=== PATIENT | female | born 1960 | race Caucasian/White ===

== ENCOUNTER 2021-03-28 14:43 | Outpatient (CLI) | payer BC | END 2021-03-28 14:44 | disposition home or self-care (01) | LOC: BICRAD 14:43 | PROVIDERS: ATTEND Internal Medicine | DX: R05.3 Chronic cough (principal) | CPT/HCPCS: 71046 ==

== ENCOUNTER 2021-04-05 09:21 | Outpatient (CLI) | payer BC, OTHER | END 2021-04-05 09:22 | disposition home or self-care (01) | LOC: CTENTCT 09:21 | PROVIDERS: ATTEND Specialist | DX: G50.1 Atypical facial pain (principal); L02.01 Cutaneous abscess of face | CPT/HCPCS: 70486 ==